=== PATIENT | female | born 1935 | race Caucasian/White ===

== ENCOUNTER 2022-01-03 12:05 | Inpatient (IN) | payer OTHER, MEDICARE ==
[2022-01-03 13:26] LABS: BASO % 0.4 % (0-2.0); EOS % 0.1 % (0-4.5); HEMATOCRIT 35.7 % (32.4-45.2); HEMOGLOBIN 11.5 GM/dL (10.7-15.3); LYMPH % 4.9 % (8-40); MCH 28.8 pg (25.7-33.7); MCHC 32.3 g/dl (32.0-36.0); MEAN CELL VOLUME 89.2 fl (80-96); MEAN PLT VOLUME 8.3 fl (7.5-11.1); MONO % 7.5 % (3.8-10.2); NEUT % 87.1 % (42.8-82.8); PLATELET COUNT 262 10^3/uL (134-434); WHITE BLOOD COUNT 15.3 K/mm3 (4.0-10.0)
[2022-01-03 13:31] LABS: INR 0.97 (0.83-1.09); PROTHROMBIN TIME (PATIENT) 11.1 SEC (9.7-13.0)
[2022-01-03 13:33] LABS: ACTIVATED PTT 29.4 SECONDS (25.2-36.5)
[2022-01-03 13:38] LABS: CALCIUM 8.9 mg/dL (8.5-10.1)
[2022-01-03 13:39] LABS: ALBUMIN 3.6 g/dl (3.4-5.0); BLOOD UREA NITROGEN 18.6 mg/dL (7-18)
[2022-01-03 13:42] LABS: CREATININE 0.9 mg/dL (0.55-1.3)
[2022-01-03 13:43] LABS: BILIRUBIN,TOTAL 0.8 mg/dL (0.2-1); LACTIC ACID 2.1 mmol/L (0.4-2.0); TOT PROT 6.7 g/dl (6.4-8.2)
[2022-01-03] MEDS ORDERED: PIPERACILLIN/TAZOB 3.375 GM 3.375 GM in DEXTROSE 5%-WATER - 50 ML IVPB ONE (16:11)
[2022-01-03] MEDS ORDERED: PIPERACILLIN/TAZOB 3.375 GM 3.375 GM/50 ML BAG IVPB ONE (16:25)
[2022-01-03] MEDS ORDERED: SODIUM CHLORIDE 0.9% 500 ML INFUS.BAG IV ONE (16:33)
[2022-01-03 16:48] LABS: PH,URINE 5.5 (5.0-8.0); URINE APPEARANCE CLEAR; URINE BILIRUBIN NEGATIVE (NEGATIVE); URINE COLOR YELLOW; URINE GLUCOSE (UA) NEGATIVE (NEGATIVE); URINE KETONE NEGATIVE (NEGATIVE); URINE LEUK ESTERASE NEGATIVE (NEGATIVE); URINE NITRITE NEGATIVE (NEGATIVE); URINE PROTEIN NEGATIVE (NEGATIVE); URINE UROBILINOGEN 0.2 mg/dL (0.2-1.0)
[2022-01-03] MEDS ORDERED: ONDANSETRON 4 MG/2 ML VIAL IVPUSH PRN (17:04)
[2022-01-03] MEDS: D5-1/2NS+10 MEQ KCL - 10 MEQ/1,000 ML INFUS.BAG IV SCH (18:31)
[2022-01-03] MEDS ORDERED: ACETAMINOPHEN 1000 MG/100 ML BAG IVPB PRN (18:32)
[2022-01-03] MEDS ORDERED: CEFTRIAXONE 1 GM/50 ML BAG ONE (18:44)
[2022-01-03] MEDS: CEFTRIAXONE 1 GM in DEXTROSE 5%-WATER - 50 ML IVPB SCH (19:31)
[2022-01-03] MEDS: FAMOTIDINE 20 MG/50 ML IVPB 20 MG/50 ML MG IVPB SCH (22:23)
[2022-01-04 02:52] VITALS: BMI 24.7
[2022-01-04 08:30] LABS: BASO % 0.5 % (0-2.0); EOS % 0.5 % (0-4.5); HEMATOCRIT 35.2 % (32.4-45.2); HEMOGLOBIN 11.3 GM/dL (10.7-15.3); LYMPH % 8.2 % (8-40); MCH 28.9 pg (25.7-33.7); MCHC 32.1 g/dl (32.0-36.0); MEAN CELL VOLUME 90.1 fl (80-96); MEAN PLT VOLUME 8.5 fl (7.5-11.1); MONO % 7.3 % (3.8-10.2); NEUT % 83.5 % (42.8-82.8); PLATELET COUNT 244 10^3/uL (134-434); RDW 14.4 % (11.6-15.6); WHITE BLOOD COUNT 11.3 K/mm3 (4.0-10.0)
[2022-01-04 08:57] LABS: CALCIUM 8.5 mg/dL (8.5-10.1)
[2022-01-04 08:58] LABS: ALBUMIN 3.1 g/dl (3.4-5.0); BLOOD UREA NITROGEN 11.2 mg/dL (7-18)
[2022-01-04 09:00] LABS: CREATININE 0.8 mg/dL (0.55-1.3)
[2022-01-04 09:01] LABS: BILIRUBIN,TOTAL 0.6 mg/dL (0.2-1)
[2022-01-04] MEDS: D5-1/2NS+10 MEQ KCL - 10 MEQ/1,000 ML INFUS.BAG IV SCH ×2 (09:44→17:30)
[2022-01-04] MEDS ORDERED: DEXTROSE 5%-WATER - 50 ML IVPB ONE ×2 (10:31→11:48)
[2022-01-04] MEDS ORDERED: cefTRIAXone SODIUM 1 GM VIAL ONE ×2 (10:31→11:48)
[2022-01-04] MEDS: CEFTRIAXONE 1 GM in DEXTROSE 5%-WATER - 50 ML IVPB SCH (11:48)
[2022-01-04] MEDS: FAMOTIDINE 20 MG/50 ML IVPB 20 MG/50 ML MG IVPB SCH ×2 (12:27→21:28)
[2022-01-04 22:55] VITALS: TEMP 98.5
[2022-01-05] MEDS ORDERED: LORazepam 2 MG/ML SDV VIAL IVPUSH ONE (07:18)
[2022-01-05] MEDS ORDERED: DEXTROSE 5%-WATER - 50 ML IVPB ONE (09:20)
[2022-01-05] MEDS ORDERED: cefTRIAXone SODIUM 1 GM VIAL ONE (09:20)
[2022-01-05] MEDS: CEFTRIAXONE 1 GM in DEXTROSE 5%-WATER - 50 ML IVPB SCH (09:41)
[2022-01-05] MEDS: FAMOTIDINE 20 MG/50 ML IVPB 20 MG/50 ML MG IVPB SCH (09:43)
[2022-01-05 12:36] LABS: BASO % 0.4 % (0-2.0); EOS % 0.5 % (0-4.5); HEMATOCRIT 31.7 % (32.4-45.2); HEMOGLOBIN 10.5 GM/dL (10.7-15.3); LYMPH % 9.3 % (8-40); MCH 29.3 pg (25.7-33.7); MEAN CELL VOLUME 88.9 fl (80-96); MEAN PLT VOLUME 8.1 fl (7.5-11.1); MONO % 9.5 % (3.8-10.2); NEUT % 80.3 % (42.8-82.8); PLATELET COUNT 232 10^3/uL (134-434); RBC 3.56 M/mm3 (3.60-5.2); RDW 14.3 % (11.6-15.6); WHITE BLOOD COUNT 11.3 K/mm3 (4.0-10.0)
[2022-01-05 12:54] VITALS: BP 130/60; PULSE 62
[2022-01-05 13:02] LABS: CALCIUM 8.1 mg/dL (8.5-10.1)
[2022-01-05 13:03] LABS: BLOOD UREA NITROGEN 9.3 mg/dL (7-18)
[2022-01-05 13:06] LABS: CREATININE 0.9 mg/dL (0.55-1.3); PHOSPHOROUS 2.8 mg/dL (2.5-4.9)
== END 2022-01-05 14:00 | disposition home or self-care (01) | DRG 378 ==
LOC: JER 12:05 → JERBED 16:19 → J8W 21:07
PROVIDERS: ADMIT Internal Medicine; ATTEND Internal Medicine
DX: K57.93 Diverticulitis of intestine, part unspecified, without perforation or abscess with bleeding (principal); C85.90 Non-Hodgkin lymphoma, unspecified, unspecified site; E87.2 Acidosis; I10 Essential (primary) hypertension; E78.5 Hyperlipidemia, unspecified; G30.9 Alzheimer's disease, unspecified; F02.80 Dementia in other diseases classified elsewhere, unspecified severity, without behavioral disturbance, psychotic disturbance, mood disturbance, and anxiety; K76.89 Other specified diseases of liver; K64.4 Residual hemorrhoidal skin tags
CPT/HCPCS: 36415; 74177-TC; 80048; 80053; 81003; 82272; 82977; 83605; 83690; 83735; 84100; 84484; 85025; 85610; 85730; 86140; 86850; 86900; 86901; 87086; 93005; 93010; 99285-25; C9803-CS; Q9967; U0003; U0005

== ENCOUNTER 2023-07-11 16:33 | Inpatient (IN) | payer OTHER, MEDICARE ==
[2023-07-11 18:56] LABS: BASO % 0.4 % (0-2.0); EOS % 0.5 % (0-4.5); HEMATOCRIT 32.5 % (32.4-45.2); HEMOGLOBIN 10.6 GM/dL (10.7-15.3); LYMPH % 5.8 % (8-40); MCH 27.3 pg (25.7-33.7); MCHC 32.6 g/dl (32.0-36.0); MEAN CELL VOLUME 83.6 fl (80-96); MEAN PLT VOLUME 7.7 fl (7.5-11.1); MONO % 6.6 % (3.8-10.2); NEUT % 86.7 % (42.8-82.8); PLATELET COUNT 301 10^3/uL (134-434); RBC 3.88 M/mm3 (3.60-5.2); RDW 14.8 % (11.6-15.6); WHITE BLOOD COUNT 11.2 K/mm3 (4.0-10.0)
[2023-07-11 19:24] LABS: POTASSIUM 4.4 mmol/L (3.5-5.1)
[2023-07-11 19:26] LABS: BLOOD UREA NITROGEN 13.9 mg/dL (7-18)
[2023-07-11 19:27] LABS: ALBUMIN 3.7 g/dl (3.4-5.0)
[2023-07-11 19:30] LABS: CREATININE 0.8 mg/dL (0.55-1.3)
[2023-07-11 19:31] LABS: BILIRUBIN,TOTAL 0.5 mg/dL (0.2-1); TOT PROT 7.1 g/dl (6.4-8.2)
[2023-07-12] MEDS ORDERED: ENOXAPARIN NA (PORCINE) 80 MG/0.8 ML DISP.SYRIN SQ SCH (03:00)
[2023-07-12 07:07] VITALS: BMI 25.7
[2023-07-12 07:30] LABS: HEMOGLOBIN 10.7 GM/dL (10.7-15.3); MCH 26.7 pg (25.7-33.7); MCHC 31.5 g/dl (32.0-36.0); MEAN CELL VOLUME 84.8 fl (80-96); MEAN PLT VOLUME 8.1 fl (7.5-11.1); PLATELET COUNT 336 10^3/uL (134-434); RBC 4.01 M/mm3 (3.60-5.2); RDW 14.9 % (11.6-15.6); WHITE BLOOD COUNT 9.7 K/mm3 (4.0-10.0)
[2023-07-12 08:05] LABS: BLOOD UREA NITROGEN 11.2 mg/dL (7-18); CALCIUM 8.8 mg/dL (8.5-10.1)
[2023-07-12 08:09] LABS: CREATININE 0.6 mg/dL (0.55-1.3)
[2023-07-12 08:42] LABS: PH,URINE 7.5 (5.0-8.0); URINE APPEARANCE CLEAR; URINE BILIRUBIN NEGATIVE (NEGATIVE); URINE COLOR YELLOW; URINE GLUCOSE (UA) NEGATIVE (NEGATIVE); URINE KETONE NEGATIVE (NEGATIVE); URINE LEUK ESTERASE NEGATIVE (NEGATIVE); URINE NITRITE NEGATIVE (NEGATIVE); URINE PROTEIN NEGATIVE (NEGATIVE); URINE UROBILINOGEN 0.2 mg/dL (0.2-1.0)
[2023-07-12] MEDS: APIXABAN 5 MG TABLET PO SCH ×2 (09:25→22:31)
[2023-07-12] MEDS: amLODIPine BESYLATE 5 MG TABLET (FP) PO SCH (09:26)
[2023-07-12] MEDS: ESCITALOPRAM OXALATE 10 MG TABLET PO SCH (09:26)
[2023-07-12] MEDS ORDERED: ENOXAPARIN NA (PORCINE) 40 MG/0.4 ML DISP.SYRIN SQ SCH (10:00)
[2023-07-12] MEDS ORDERED: traZODone HCL 50 MG TABLET (FP) PO SCH (22:00)
[2023-07-12] MEDS: ATORVASTATIN CA 20 MG TABLET (FP) PO SCH (22:31)
[2023-07-13 08:09] LABS: BASO % 0.3 % (0-2.0); EOS % 0.4 % (0-4.5); HEMOGLOBIN 10.8 GM/dL (10.7-15.3); MCH 27.2 pg (25.7-33.7); MCHC 32.8 g/dl (32.0-36.0); MEAN CELL VOLUME 82.8 fl (80-96); NEUT % 85.3 % (42.8-82.8); PLATELET COUNT 305 10^3/uL (134-434); RBC 3.99 M/mm3 (3.60-5.2); RDW 15.2 % (11.6-15.6); WHITE BLOOD COUNT 12.4 K/mm3 (4.0-10.0)
[2023-07-13 08:36] LABS: POTASSIUM 4.3 mmol/L (3.5-5.1)
[2023-07-13 08:46] LABS: ALBUMIN 3.4 g/dl (3.4-5.0); BLOOD UREA NITROGEN 16.5 mg/dL (7-18); CALCIUM 8.7 mg/dL (8.5-10.1)
[2023-07-13 08:49] LABS: CREATININE 0.7 mg/dL (0.55-1.3); PHOSPHOROUS 3.6 mg/dL (2.5-4.9)
[2023-07-13 08:51] LABS: BILIRUBIN,TOTAL 0.6 mg/dL (0.2-1)
[2023-07-13] MEDS: ESCITALOPRAM OXALATE 10 MG TABLET PO SCH (09:07)
[2023-07-13] MEDS: APIXABAN 5 MG TABLET PO SCH ×2 (09:07→22:14)
[2023-07-13] MEDS: amLODIPine BESYLATE 5 MG TABLET (FP) PO SCH (09:07)
[2023-07-13] MEDS: traZODone HCL 50 MG TABLET (FP) PO SCH (22:14)
[2023-07-13] MEDS: ATORVASTATIN CA 20 MG TABLET (FP) PO SCH (22:14)
[2023-07-14] MEDS: APIXABAN 5 MG TABLET PO SCH ×2 (09:06→21:49)
[2023-07-14] MEDS: ESCITALOPRAM OXALATE 10 MG TABLET PO SCH (09:06)
[2023-07-14] MEDS: amLODIPine BESYLATE 5 MG TABLET (FP) PO SCH (09:06)
[2023-07-14] MEDS: traZODone HCL 50 MG TABLET (FP) PO SCH (21:49)
[2023-07-14] MEDS: ATORVASTATIN CA 20 MG TABLET (FP) PO SCH (21:49)
[2023-07-15] MEDS: MELATONIN 5 MG TABLETS PO SCH ×2 (02:40→21:21)
[2023-07-15 07:10] LABS: BASO % 0.8 % (0-2.0); HEMATOCRIT 28.2 % (32.4-45.2); HEMOGLOBIN 8.9 GM/dL (10.7-15.3); LYMPH % 3.5 % (8-40); MCH 26.7 pg (25.7-33.7); MCHC 31.5 g/dl (32.0-36.0); MEAN CELL VOLUME 84.8 fl (80-96); MONO % 9.6 % (3.8-10.2); NEUT % 86.1 % (42.8-82.8); PLATELET COUNT 293 10^3/uL (134-434); RBC 3.32 M/mm3 (3.60-5.2); RDW 14.7 % (11.6-15.6); WHITE BLOOD COUNT 14.2 K/mm3 (4.0-10.0)
[2023-07-15 08:00] LABS: POTASSIUM 4.4 mmol/L (3.5-5.1)
[2023-07-15 08:13] LABS: CALCIUM 8.8 mg/dL (8.5-10.1)
[2023-07-15 08:14] LABS: ALBUMIN 3.1 g/dl (3.4-5.0); BLOOD UREA NITROGEN 30.2 mg/dL (7-18); MAGNESIUM 2.5 mg/dL (1.8-2.4)
[2023-07-15 08:16] LABS: PHOSPHOROUS 3.9 mg/dL (2.5-4.9)
[2023-07-15 08:18] LABS: BILIRUBIN,TOTAL 0.7 mg/dL (0.2-1)
[2023-07-15 08:19] LABS: TOT PROT 6.5 g/dl (6.4-8.2)
[2023-07-15] MEDS: ESCITALOPRAM OXALATE 10 MG TABLET PO SCH (09:29)
[2023-07-15] MEDS: amLODIPine BESYLATE 5 MG TABLET (FP) PO SCH (09:29)
[2023-07-15] MEDS: APIXABAN 5 MG TABLET PO SCH ×2 (09:29→21:21)
[2023-07-15] MEDS: traZODone HCL 50 MG TABLET (FP) PO SCH (21:21)
[2023-07-15] MEDS: ATORVASTATIN CA 20 MG TABLET (FP) PO SCH (21:21)
[2023-07-15] MEDS ORDERED: MELATONIN 5 MG TABLETS PO SCH (22:00)
[2023-07-16 07:35] LABS: BASO % 0.8 % (0-2.0); EOS % 0.1 % (0-4.5); HEMATOCRIT 25.1 % (32.4-45.2); LYMPH % 8.2 % (8-40); MCH 27.1 pg (25.7-33.7); MEAN CELL VOLUME 84.8 fl (80-96); MEAN PLT VOLUME 8.3 fl (7.5-11.1); MONO % 6.9 % (3.8-10.2); PLATELET COUNT 338 10^3/uL (134-434); RBC 2.96 M/mm3 (3.60-5.2); RDW 15.2 % (11.6-15.6); WHITE BLOOD COUNT 12.4 K/mm3 (4.0-10.0)
[2023-07-16 08:01] LABS: BLOOD UREA NITROGEN 40.1 mg/dL (7-18); CALCIUM 8.8 mg/dL (8.5-10.1); MAGNESIUM 2.4 mg/dL (1.8-2.4)
[2023-07-16 08:04] LABS: ALBUMIN 3.1 g/dl (3.4-5.0)
[2023-07-16 08:07] LABS: PHOSPHOROUS 4.4 mg/dL (2.5-4.9); TOT PROT 6.7 g/dl (6.4-8.2)
[2023-07-16 08:11] LABS: BILIRUBIN,TOTAL 0.4 mg/dL (0.2-1)
[2023-07-16] MEDS: ESCITALOPRAM OXALATE 10 MG TABLET PO SCH (09:53)
[2023-07-16] MEDS: amLODIPine BESYLATE 5 MG TABLET (FP) PO SCH (09:53)
[2023-07-16] MEDS: APIXABAN 5 MG TABLET PO SCH ×2 (09:53→21:03)
[2023-07-16] MEDS: MELATONIN 5 MG TABLETS PO SCH (21:03)
[2023-07-16] MEDS: ATORVASTATIN CA 20 MG TABLET (FP) PO SCH (21:03)
[2023-07-16] MEDS: traZODone HCL 50 MG TABLET (FP) PO SCH (21:04)
[2023-07-17 07:32] LABS: BASO % 0.5 % (0-2.0); EOS % 0.4 % (0-4.5); HEMATOCRIT 20.8 % (32.4-45.2); LYMPH % 8.9 % (8-40); MCH 27.4 pg (25.7-33.7); MCHC 32.2 g/dl (32.0-36.0); MEAN CELL VOLUME 85.1 fl (80-96); MEAN PLT VOLUME 8.2 fl (7.5-11.1); MONO % 8.6 % (3.8-10.2); NEUT % 81.6 % (42.8-82.8); PLATELET COUNT 309 10^3/uL (134-434); RBC 2.44 M/mm3 (3.60-5.2); RDW 15.2 % (11.6-15.6); WHITE BLOOD COUNT 9.6 K/mm3 (4.0-10.0)
[2023-07-17 07:53] LABS: POTASSIUM 4.2 mmol/L (3.5-5.1)
[2023-07-17 08:00] LABS: MAGNESIUM 2.3 mg/dL (1.8-2.4)
[2023-07-17 08:01] LABS: ALBUMIN 2.8 g/dl (3.4-5.0); BLOOD UREA NITROGEN 34.3 mg/dL (7-18)
[2023-07-17 08:02] LABS: HEMOGLOBIN 6.7 GM/dL (10.7-15.3)
[2023-07-17 08:04] LABS: CREATININE 0.9 mg/dL (0.55-1.3)
[2023-07-17 08:05] LABS: PHOSPHOROUS 3.9 mg/dL (2.5-4.9); TOT PROT 5.9 g/dl (6.4-8.2)
[2023-07-17 08:18] LABS: CALCIUM 8.2 mg/dL (8.5-10.1)
[2023-07-17] MEDS: ESCITALOPRAM OXALATE 10 MG TABLET PO SCH (11:07)
[2023-07-17] MEDS: APIXABAN 5 MG TABLET PO SCH ×3 (11:08→21:43)
[2023-07-17] MEDS: amLODIPine BESYLATE 5 MG TABLET (FP) PO SCH (11:08)
[2023-07-17 19:54] LABS: HEMATOCRIT 25.3 % (32.4-45.2); HEMOGLOBIN 8.6 GM/dL (10.7-15.3); MCH 28.4 pg (25.7-33.7); MCHC 33.9 g/dl (32.0-36.0); MEAN CELL VOLUME 83.7 fl (80-96); MEAN PLT VOLUME 7.7 fl (7.5-11.1); PLATELET COUNT 338 10^3/uL (134-434); RBC 3.02 M/mm3 (3.60-5.2); RDW 14.9 % (11.6-15.6); WHITE BLOOD COUNT 10.3 K/mm3 (4.0-10.0)
[2023-07-17] MEDS: traZODone HCL 50 MG TABLET (FP) PO SCH ×2 (21:29→21:43)
[2023-07-17] MEDS: ATORVASTATIN CA 20 MG TABLET (FP) PO SCH ×2 (21:29→21:44)
[2023-07-17] MEDS: MELATONIN 5 MG TABLETS PO SCH (21:30)
[2023-07-18 06:10] VITALS: PULSE 70
[2023-07-18 08:00] LABS: HEMATOCRIT 27.4 % (32.4-45.2); HEMOGLOBIN 9.1 GM/dL (10.7-15.3); MCH 28.2 pg (25.7-33.7); MCHC 33.3 g/dl (32.0-36.0); MEAN CELL VOLUME 84.6 fl (80-96); MEAN PLT VOLUME 7.9 fl (7.5-11.1); PLATELET COUNT 400 10^3/uL (134-434); RBC 3.24 M/mm3 (3.60-5.2); RDW 14.1 % (11.6-15.6); WHITE BLOOD COUNT 10.6 K/mm3 (4.0-10.0)
[2023-07-18 08:22] LABS: CALCIUM 8.7 mg/dL (8.5-10.1)
[2023-07-18 08:28] LABS: BLOOD UREA NITROGEN 25.1 mg/dL (7-18); MAGNESIUM 2.4 mg/dL (1.8-2.4); TOT PROT 6.5 g/dl (6.4-8.2)
[2023-07-18 08:29] LABS: ALBUMIN 3.2 g/dl (3.4-5.0); BILIRUBIN,TOTAL 1.4 mg/dL (0.2-1)
[2023-07-18 08:31] LABS: CREATININE 0.7 mg/dL (0.55-1.3)
[2023-07-18] MEDS: amLODIPine BESYLATE 5 MG TABLET (FP) PO SCH (10:07)
[2023-07-18] MEDS: ESCITALOPRAM OXALATE 10 MG TABLET PO SCH (10:08)
[2023-07-18] MEDS: APIXABAN 5 MG TABLET PO SCH (10:08)
[2023-07-18 11:04] VITALS: BP 129/76; RESP 20; TEMP 98
[2023-07-18 11:14] LABS: ANISOCYTOSIS 1+; MACROCYTOSIS 0
== END 2023-07-18 15:38 | DRG 176 ==
LOC: JER 16:33 → JERBED 22:17 → J4W 07-12 03:31
PROVIDERS: ADMIT Internal Medicine; ATTEND Internal Medicine
PROC: 30233N1 Transfusion of Nonautologous Red Blood Cells into Peripheral Vein, Percutaneous Approach (ICD-10-PCS; principal; 2023-07-17)
DX: I26.99 Other pulmonary embolism without acute cor pulmonale (principal); F02.811 Dementia in other diseases classified elsewhere, unspecified severity, with agitation; R55 Syncope and collapse; I10 Essential (primary) hypertension; E78.5 Hyperlipidemia, unspecified; G30.9 Alzheimer's disease, unspecified; G31.83 Neurocognitive disorder with Lewy bodies; D64.9 Anemia, unspecified; D72.829 Elevated white blood cell count, unspecified
CPT/HCPCS: 0241U-QW; 36415; 36430; 70450-TC; 71045-TC-FY; 71260-TC; 72125-TC; 72170-TC-FY; 73552-TC-RT-FY; 80048; 80053; 81003; 82550; 83735; 84100; 84439; 84443; 84481; 84484; 85025; 85027; 86850; 86900; 86901; 86922; 87086; 87635; 93005; 93010; 93306-TC; 93970-TC; 97116-GP; 97162-GP; 99285-25; P9058; Q9967

== ENCOUNTER 2023-09-01 07:05 | Inpatient (IN) | payer OTHER, MEDICARE ==
[2023-09-01 08:10] LABS: HEMATOCRIT 24.4 % (32.4-45.2); HEMOGLOBIN 7.7 GM/dL (10.7-15.3); MCH 27.1 pg (25.7-33.7); MCHC 31.5 g/dl (32.0-36.0); MEAN CELL VOLUME 86.1 fl (80-96); MEAN PLT VOLUME 7.6 fl (7.5-11.1); PLATELET COUNT 333 10^3/uL (134-434); RBC 2.83 M/mm3 (3.60-5.2); RDW 21.3 % (11.6-15.6)
[2023-09-01 08:19] LABS: INR 1.38 (0.83-1.09); PROTHROMBIN TIME (PATIENT) 15.9 SEC (9.7-13.0)
[2023-09-01] MEDS ORDERED: MAG HYDROX/AL HYDROX/SIMETH 30 ML UNIT-DOSE CUP ONE (08:19)
[2023-09-01] MEDS ORDERED: ACETAMINOPHEN INJECTION 100 ML IVPB ONE (08:19)
[2023-09-01] MEDS ORDERED: FAMOTIDINE 20 MG/50 ML IVPB 20 MG/50 ML MG IVPB ONE (08:20)
[2023-09-01 08:40] LABS: BLOOD UREA NITROGEN 10.9 mg/dL (7-18); CALCIUM 9.1 mg/dL (8.5-10.1)
[2023-09-01 08:41] LABS: ALBUMIN 3.1 g/dl (3.4-5.0)
[2023-09-01 08:44] LABS: CREATININE 0.7 mg/dL (0.55-1.3)
[2023-09-01 08:45] LABS: BILIRUBIN,TOTAL 0.4 mg/dL (0.2-1); TOT PROT 6.5 g/dl (6.4-8.2)
[2023-09-01 09:09] LABS: ANISOCYTOSIS 1+; MACROCYTOSIS 0
[2023-09-01 11:33] LABS: EPI CELLS 4 /uL (0-25.1); HYALINE CASTS 0 /uL (0-3.1); PH,URINE 7.5 (5.0-8.0); URINE APPEARANCE Error; URINE BACTERIA >9,000 /uL (0-1359); URINE BILIRUBIN NEGATIVE (NEGATIVE); URINE COLOR YELLOW; URINE GLUCOSE (UA) NEGATIVE (NEGATIVE); URINE KETONE NEGATIVE (NEGATIVE); URINE LEUK ESTERASE TRACE (NEGATIVE); URINE NITRITE NEGATIVE (NEGATIVE); URINE PROTEIN NEGATIVE (NEGATIVE); URINE RBC 2 /uL (0-23.9); URINE UROBILINOGEN 0.2 mg/dL (0.2-1.0); URINE WBC 11 /uL (0-25.8)
[2023-09-01] MEDS ORDERED: D5-1/2NS+10 MEQ KCL - 10 MEQ/1,000 ML INFUS.BAG IV SCH ×2 (13:00→13:05)
[2023-09-01] MEDS ORDERED: PANTOPRAZOLE 40 MG TABLET PO ONE (15:11)
[2023-09-01] MEDS: PANTOPRAZOLE 40 MG TABLET PO SCH ×2 (15:11→15:16)
[2023-09-01] MEDS ORDERED: ESCITALOPRAM OXALATE 10 MG TABLET ONE (15:11)
[2023-09-01] MEDS: ESCITALOPRAM OXALATE 10 MG TABLET PO SCH ×2 (15:11→15:16)
[2023-09-01] MEDS: D5-1/2NS+10 MEQ KCL - 10 MEQ/1,000 ML INFUS.BAG IV SCH (15:23)
[2023-09-01] MEDS: TIMOLOL MALEATE 0.5% GFS OPHTHALMIC SOLN 5 ML BOTTLE OU SCH (17:21)
[2023-09-01] MEDS ORDERED: traZODone HCL 50 MG TABLET (FP) ONE (20:59)
[2023-09-01] MEDS ORDERED: HEPARIN NA (PORCINE) 5,000 UNITS/ML 1ML VIAL ONE (20:59)
[2023-09-01] MEDS: traZODone HCL 50 MG TABLET (FP) PO SCH (21:22)
[2023-09-01] MEDS: HEPARIN NA (PORCINE) 5,000 UNITS/ML 1ML VIAL SQ SCH (21:22)
[2023-09-01] MEDS ORDERED: PANTOPRAZOLE 20 MG TABLET PO SCH (22:00)
[2023-09-02] MEDS ORDERED: HEPARIN NA (PORCINE) 5,000 UNITS/ML 1ML VIAL ONE (05:36)
[2023-09-02] MEDS: HEPARIN NA (PORCINE) 5,000 UNITS/ML 1ML VIAL SQ SCH ×3 (05:41→21:41)
[2023-09-02] MEDS ORDERED: CEFTRIAXONE 2 GM/100 ML BAG IVPB ONE (08:25)
[2023-09-02] MEDS: ESCITALOPRAM OXALATE 10 MG TABLET PO SCH (09:48)
[2023-09-02] MEDS ORDERED: PANTOPRAZOLE SODIUM 40 MG VIAL IVPUSH SCH (10:00)
[2023-09-02] MEDS: CEFTRIAXONE 2 GM in DEXTROSE 5%-WATER - 50 ML IVPB SCH (10:19)
[2023-09-02] MEDS: TIMOLOL MALEATE 0.5% GFS OPHTHALMIC SOLN 5 ML BOTTLE OU SCH (11:06)
[2023-09-02 12:21] LABS: BASO % 0.9 % (0-2.0); EOS % 0.5 % (0-4.5); HEMOGLOBIN 9.3 GM/dL (10.7-15.3); LYMPH % 8.1 % (8-40); MCH 27.7 pg (25.7-33.7); MEAN CELL VOLUME 86.5 fl (80-96); MEAN PLT VOLUME 8.2 fl (7.5-11.1); MONO % 9.6 % (3.8-10.2); NEUT % 80.9 % (42.8-82.8); PLATELET COUNT 356 10^3/uL (134-434); RBC 3.35 M/mm3 (3.60-5.2); RDW 19.7 % (11.6-15.6); WHITE BLOOD COUNT 10.1 K/mm3 (4.0-10.0)
[2023-09-02] MEDS: D5-1/2NS+10 MEQ KCL - 10 MEQ/1,000 ML INFUS.BAG IV SCH (15:28)
[2023-09-02] MEDS: traZODone HCL 50 MG TABLET (FP) PO SCH (21:41)
[2023-09-03] MEDS: HEPARIN NA (PORCINE) 5,000 UNITS/ML 1ML VIAL SQ SCH ×3 (06:17→21:23)
[2023-09-03 07:42] LABS: POTASSIUM 3.7 mmol/L (3.5-5.1)
[2023-09-03 07:45] LABS: BLOOD UREA NITROGEN 14.4 mg/dL (7-18); CALCIUM 8.6 mg/dL (8.5-10.1)
[2023-09-03 07:47] VITALS: BMI 24.3
[2023-09-03 07:49] LABS: CREATININE 0.6 mg/dL (0.55-1.3)
[2023-09-03 07:51] LABS: BASO % 0.2 % (0-2.0); HEMATOCRIT 27.6 % (32.4-45.2); HEMOGLOBIN 8.8 GM/dL (10.7-15.3); LYMPH % 5.6 % (8-40); MCH 27.2 pg (25.7-33.7); MCHC 31.9 g/dl (32.0-36.0); MEAN PLT VOLUME 7.8 fl (7.5-11.1); MONO % 9.4 % (3.8-10.2); NEUT % 84.8 % (42.8-82.8); PLATELET COUNT 383 10^3/uL (134-434); RBC 3.24 M/mm3 (3.60-5.2); RDW 19.3 % (11.6-15.6); WHITE BLOOD COUNT 10.3 K/mm3 (4.0-10.0)
[2023-09-03] MEDS ORDERED: IRON SUCROSE INJECTION 300 MG in SODIUM CHLORIDE 235 ML IVPB ONE (10:00)
[2023-09-03] MEDS ORDERED: PNEUMOC 20-VAL CONJ-DIP CRM/PF 0.5 ML SYRINGE IM ONE (11:00)
[2023-09-03] MEDS: ESCITALOPRAM OXALATE 10 MG TABLET PO SCH (11:20)
[2023-09-03] MEDS: CEFTRIAXONE 2 GM in DEXTROSE 5%-WATER - 50 ML IVPB SCH (11:20)
[2023-09-03] MEDS: PANTOPRAZOLE 40 MG TABLET PO SCH (11:20)
[2023-09-03] MEDS: TIMOLOL MALEATE 0.5% GFS OPHTHALMIC SOLN 5 ML BOTTLE OU SCH (11:22)
[2023-09-03] MEDS: D5-1/2NS+10 MEQ KCL - 10 MEQ/1,000 ML INFUS.BAG IV SCH (17:24)
[2023-09-03] MEDS: traZODone HCL 50 MG TABLET (FP) PO SCH (21:23)
[2023-09-04] MEDS: HEPARIN NA (PORCINE) 5,000 UNITS/ML 1ML VIAL SQ SCH ×2 (06:23→14:59)
[2023-09-04 07:14] LABS: BASO % 0.6 % (0-2.0); EOS % 0.1 % (0-4.5); HEMATOCRIT 29.5 % (32.4-45.2); HEMOGLOBIN 9.4 GM/dL (10.7-15.3); LYMPH % 4.1 % (8-40); MCH 27.2 pg (25.7-33.7); MEAN PLT VOLUME 7.9 fl (7.5-11.1); MONO % 10.1 % (3.8-10.2); NEUT % 85.1 % (42.8-82.8); PLATELET COUNT 400 10^3/uL (134-434); RBC 3.47 M/mm3 (3.60-5.2); RDW 19.5 % (11.6-15.6); WHITE BLOOD COUNT 11.1 K/mm3 (4.0-10.0)
[2023-09-04] MEDS: PANTOPRAZOLE 40 MG TABLET PO SCH (10:20)
[2023-09-04] MEDS: ESCITALOPRAM OXALATE 10 MG TABLET PO SCH (10:20)
[2023-09-04] MEDS: CEFTRIAXONE 2 GM in DEXTROSE 5%-WATER - 50 ML IVPB SCH (10:21)
[2023-09-04] MEDS: TIMOLOL MALEATE 0.5% GFS OPHTHALMIC SOLN 5 ML BOTTLE OU SCH (10:22)
[2023-09-04] MEDS: traZODone HCL 50 MG TABLET (FP) PO SCH (22:03)
[2023-09-04] MEDS: APIXABAN 2.5 MG TABLET PO SCH (22:06)
[2023-09-05 08:17] LABS: BASO % 0.5 % (0-2.0); EOS % 0.1 % (0-4.5); HEMATOCRIT 30.2 % (32.4-45.2); HEMOGLOBIN 9.5 GM/dL (10.7-15.3); LYMPH % 3.8 % (8-40); MCH 27.1 pg (25.7-33.7); MCHC 31.6 g/dl (32.0-36.0); MEAN CELL VOLUME 85.8 fl (80-96); MEAN PLT VOLUME 8.1 fl (7.5-11.1); MONO % 11.1 % (3.8-10.2); NEUT % 84.5 % (42.8-82.8); PLATELET COUNT 438 10^3/uL (134-434); RBC 3.52 M/mm3 (3.60-5.2); RDW 19.5 % (11.6-15.6); WHITE BLOOD COUNT 11.5 K/mm3 (4.0-10.0)
[2023-09-05] MEDS: ESCITALOPRAM OXALATE 10 MG TABLET PO SCH (09:44)
[2023-09-05] MEDS: CEFTRIAXONE 2 GM in DEXTROSE 5%-WATER - 50 ML IVPB SCH (09:44)
[2023-09-05] MEDS: PANTOPRAZOLE 40 MG TABLET PO SCH (09:45)
[2023-09-05] MEDS: APIXABAN 2.5 MG TABLET PO SCH ×2 (09:45→22:29)
[2023-09-05] MEDS: TIMOLOL MALEATE 0.5% GFS OPHTHALMIC SOLN 5 ML BOTTLE OU SCH (10:27)
[2023-09-05] MEDS: FUROSEMIDE 20 MG TABLET (FP) PO SCH (15:16)
[2023-09-05] MEDS: traZODone HCL 50 MG TABLET (FP) PO SCH (22:29)
[2023-09-06 07:27] LABS: BASO % 0.7 % (0-2.0); EOS % 0.2 % (0-4.5); HEMATOCRIT 26.7 % (32.4-45.2); HEMOGLOBIN 8.5 GM/dL (10.7-15.3); LYMPH % 5.1 % (8-40); MCHC 31.9 g/dl (32.0-36.0); MEAN CELL VOLUME 84.8 fl (80-96); MEAN PLT VOLUME 8.1 fl (7.5-11.1); MONO % 8.1 % (3.8-10.2); NEUT % 85.9 % (42.8-82.8); PLATELET COUNT 472 10^3/uL (134-434); RBC 3.14 M/mm3 (3.60-5.2); RDW 19.3 % (11.6-15.6)
[2023-09-06] MEDS: PANTOPRAZOLE 40 MG TABLET PO SCH (10:37)
[2023-09-06] MEDS: FUROSEMIDE 20 MG TABLET (FP) PO SCH (10:37)
[2023-09-06] MEDS: APIXABAN 2.5 MG TABLET PO SCH ×2 (10:37→22:47)
[2023-09-06] MEDS: CEFTRIAXONE 2 GM in DEXTROSE 5%-WATER - 50 ML IVPB SCH (10:37)
[2023-09-06] MEDS: ESCITALOPRAM OXALATE 10 MG TABLET PO SCH (10:37)
[2023-09-06] MEDS: TIMOLOL MALEATE 0.5% GFS OPHTHALMIC SOLN 5 ML BOTTLE OU SCH (10:38)
[2023-09-06] MEDS ORDERED: IRON SUCROSE INJECTION 300 MG in SODIUM CHLORIDE 235 ML IVPB ONE (11:00)
[2023-09-06] MEDS: traZODone HCL 50 MG TABLET (FP) PO SCH (22:47)
[2023-09-06] MEDS: CEFUROXIME AXETIL 500 MG TABLET PO SCH (23:02)
[2023-09-07 07:07] LABS: BASO % 0.6 % (0-2.0); EOS % 0.4 % (0-4.5); HEMATOCRIT 27.4 % (32.4-45.2); HEMOGLOBIN 8.7 GM/dL (10.7-15.3); LYMPH % 4.7 % (8-40); MCH 26.8 pg (25.7-33.7); MCHC 31.6 g/dl (32.0-36.0); MEAN CELL VOLUME 84.9 fl (80-96); MEAN PLT VOLUME 7.9 fl (7.5-11.1); MONO % 8.1 % (3.8-10.2); NEUT % 86.2 % (42.8-82.8); PLATELET COUNT 518 10^3/uL (134-434); RBC 3.23 M/mm3 (3.60-5.2); RDW 19.4 % (11.6-15.6); WHITE BLOOD COUNT 11.6 K/mm3 (4.0-10.0)
[2023-09-07] MEDS: CEFUROXIME AXETIL 500 MG TABLET PO SCH ×2 (10:14→22:14)
[2023-09-07] MEDS: APIXABAN 2.5 MG TABLET PO SCH ×2 (10:15→21:34)
[2023-09-07] MEDS: PANTOPRAZOLE 40 MG TABLET PO SCH (10:15)
[2023-09-07] MEDS: FUROSEMIDE 20 MG TABLET (FP) PO SCH (10:15)
[2023-09-07] MEDS: ESCITALOPRAM OXALATE 10 MG TABLET PO SCH (10:15)
[2023-09-07] MEDS: TIMOLOL MALEATE 0.5% GFS OPHTHALMIC SOLN 5 ML BOTTLE OU SCH (10:48)
[2023-09-07 21:34] VITALS: RESP 18
[2023-09-07] MEDS: traZODone HCL 50 MG TABLET (FP) PO SCH (21:34)
[2023-09-08] MEDS: TIMOLOL MALEATE 0.5% GFS OPHTHALMIC SOLN 5 ML BOTTLE OU SCH (10:51)
[2023-09-08] MEDS: FUROSEMIDE 20 MG TABLET (FP) PO SCH (10:51)
[2023-09-08] MEDS: PANTOPRAZOLE 40 MG TABLET PO SCH (10:51)
[2023-09-08] MEDS: APIXABAN 2.5 MG TABLET PO SCH (10:51)
[2023-09-08] MEDS: ESCITALOPRAM OXALATE 10 MG TABLET PO SCH (10:51)
[2023-09-08 11:23] VITALS: BP 125/79; PULSE 66; TEMP 97.7
== END 2023-09-08 13:02 | disposition home or self-care (01) | DRG 811 ==
LOC: JER 07:05 → JERBED 10:31 → OBSVTOIN 12:56 → J4W 09-03 06:22
PROVIDERS: ADMIT Internal Medicine; ATTEND Internal Medicine
PROC: 30233N1 Transfusion of Nonautologous Red Blood Cells into Peripheral Vein, Percutaneous Approach (ICD-10-PCS; principal; 2023-09-01)
DX: D50.9 Iron deficiency anemia, unspecified (principal); I26.99 Other pulmonary embolism without acute cor pulmonale; C85.90 Non-Hodgkin lymphoma, unspecified, unspecified site; I50.32 Chronic diastolic (congestive) heart failure; N39.0 Urinary tract infection, site not specified; J98.11 Atelectasis; I25.10 Atherosclerotic heart disease of native coronary artery without angina pectoris; I10 Essential (primary) hypertension; E78.5 Hyperlipidemia, unspecified; G30.9 Alzheimer's disease, unspecified; F02.80 Dementia in other diseases classified elsewhere, unspecified severity, without behavioral disturbance, psychotic disturbance, mood disturbance, and anxiety; R13.12 Dysphagia, oropharyngeal phase; R91.1 Solitary pulmonary nodule; D72.829 Elevated white blood cell count, unspecified; I11.0 Hypertensive heart disease with heart failure; F41.8 Other specified anxiety disorders; K57.90 Diverticulosis of intestine, part unspecified, without perforation or abscess without bleeding; K64.4 Residual hemorrhoidal skin tags; B95.4 Other streptococcus as the cause of diseases classified elsewhere; H40.9 Unspecified glaucoma; W18.30XA Fall on same level, unspecified, initial encounter; Y92.099 Unspecified place in other non-institutional residence as the place of occurrence of the external cause; Y99.9 Unspecified external cause status
CPT/HCPCS: 0241U-QW; 36415; 36430; 70450-TC; 71045-TC-FY; 71250-TC; 72125-TC; 72170-TC-FY; 80048; 80053; 81003; 82728; 83540; 83550; 83880; 84484; 85025; 85610; 86850; 86900; 86901; 86922; 87086; 90677; 93005; 93010; 97116-GP; 97162-GP; 99285-25; G0378; J1644; J1756; P9058